=== PATIENT | male | born 1975 | race Caucasian/White ===

== ENCOUNTER 2024-10-01 21:50 | Emergency (ER) | payer OTHER, SELFPAY ==
[2024-10-01 21:51] VITALS: BMI 21.2
[2024-10-01 22:06] VITALS: BP 158/108; PULSE 76; RESP 18; TEMP 36.7; O2SAT 99
--- NOTE | 2024-10-01 22:17 | EDNOTE_ITS ---
ED Animal Bite RME/HPI General Chief Complaint: Animal Bite Stated Complaint: dog bite to L upper lip says it won't stop bleedin Time Seen by Provider: 10/01/24 21:56 Source: patient Arrival date/time: 10/01/24 21:50 49-year-old male presents emergency department complaining of dog bite to left upper lip that occurred today. Patient reports was bit by his own dog which is up-to-date with vaccines. Patient reports last received tetanus 2 years ago. Mode of arrival: ambulatory Limitations: no limitations Related Data Patient tetanus UTD: Yes Previous Rx's ?Medication ?Instructions ?Recorded doxycycline hyclate 100 mg capsule 100 mg PO BID 7 days #14 caps 10/01/24 Allergies Allergy/AdvReac Type Severity Reaction Status Date / Time Penicillins Allergy Intermediate Hives Verified 04/21/23 10:06 Sulfa (Sulfonamide Allergy Intermediate Hives Verified 04/21/23 10:06 Antibiotics) Review of Systems Review of Systems Systems Reviewed: All systems reviewed, normal except as documented Constitutional Constitutional: Reports system reviewed and no additional complaints, except as documented, Denies body ache(s), Denies chills and Denies fever(s) Eyes Eyes: Reports system reviewed and no additional complaints, except as documented and Denies change in vision ENT Ears, Nose, Mouth, and Throat: Reports system reviewed and no additional complaints, except as documented, Denies disequilibrium, Denies dizziness, Denies sore throat and Denies vertigo Cardiovascular Cardiovascular: Reports system reviewed and no additional complaints, except as documented, Denies chest pain and Denies dyspnea Respiratory Respiratory: Reports system reviewed and no additional complaints, except as documented, Denies chest congestion, Denies cough and Denies dyspnea Gastrointestinal Gastrointestinal: Reports system reviewed and no additional complaints, except as documented, Denies abdominal pain, Denies nausea and Denies vomiting Musculoskeletal Musculoskeletal: Reports system reviewed and no additional complaints, except as documented, Denies abnormal gait and Denies arthralgias Integumentary/Breasts Skin/Breast: Reports system reviewed and no additional complaints, except as documented, Denies erythema, Denies rash and Reports wounds Neurologic Neurologic: Reports system reviewed and no additional complaints, except as documented, Denies abnormal gait, Denies disequilibrium, Denies dizziness and Denies vertigo Past Medical History Past Medical History NEUROLOGIC: Negative Neurological Disorders or Seizures CARDIAC: Negative Cardiac Disorders or Congestive Heart Failure RESPIRATORY: Negative Chronic Obstructive Pulmonary Disease (COPD) GASTROINTESTINAL: Negative Gastrointestinal Disorders GENITOURINARY: Negative Genitourinary Disorders or Renal Disease MUSCULOSKELETAL: Positive Musculoskeletal Disorders (PLANTAR FASCIITIS) ENDOCRINE: Negative Endocrine Disorders, Diabetes Mellitus Type 1 or Diabetes Mellitus Type 2 HEMATOLOGIC: Negative Blood Disorders OTHER HISTORY: Positive Chicken Pox; Negative Autoimmune Disease, Blood Transfusions, Blood Transfusion Reaction, Anesthesia Reactions, Measles, Mumps or Cancer Social History SMOKING STATUS: Never smoker ED Exam General Limitations: Present no limitations General appearance: Present alert and in no apparent distress Head Head exam: Present atraumatic Expanded Head Exam Head exam physical: Present laceration Head image: 2 1. Small laceration Eye Eye exam: Present normal appearance, PERRL and EOMI ENT ENT exam: Present normal exam, normal oropharynx and mucous membranes moist Neck Neck exam: Present normal inspection, full ROM and trachea midline Chest Chest inspection: Present normal inspection and symmetric chest wall rise Respiratory Respiratory exam: Present normal lung sounds bilaterally Cardiovascular Cardiovascular exam: Present regular rate, normal rhythm and normal heart sounds Abdominal Exam Abdominal exam: Present soft and normal bowel sounds Extremities Exam Extremities exam: Present normal inspection and full ROM Back Exam Back exam: Present normal inspection and full ROM Neurological Exam Neurological exam: Present alert, oriented X3 and CN II-XII intact Psychiatric Psychiatric exam: Present normal affect and normal mood Skin Skin exam: Present warm, dry, intact and normal color Course Quality Measures none Orders Category Date Time Status Set Up Suture Tray STAT Care 10/01/24 22:16 Completed Wound Care [Wound Care] NOW Care 10/01/24 22:16 Completed Lidocaine 1% 20 ml [Xylocaine 1% 20 ML] Med 10/01/24 22:16 Discontinued 20 ml INFL X1 ONE Vital Signs Vital signs: Vital Signs Temperature 98.0 F 10/01/24 22:06 Pulse Rate 76 10/01/24 22:06 Respiratory Rate 18 10/01/24 22:06 Blood Pressure 158/108 H 10/01/24 22:06 Pulse Oximetry (%) 99 10/01/24 22:06 Oxygen Delivery Method Room Air 10/01/24 22:06 99% room air within normal Procedures -ED Laceration Laceration 1: Site: lip Side (If applicable): left Size (cm): 1 Description: linear Depth: simple, single layer Local Anesthetic: lidocaine 1% Amount of anesthesia used (mL): 0.5 Pre-repair: wound explored Skin layer closed with: other (prolene) Size (cm): 5-0 Number of sutures: 1 Technique: simple, interrupted Animal Bite MDM Narrative MDM Narrative:: 49-year-old male presents emergency department complaining of dog bite to left upper lip that occurred today. Patient reports was bit by his own dog which is up-to-date with vaccines. Patient reports last received tetanus 2 years ago. Laceration to left upper lip cleansed with normal saline and used 0.5 mL of 1% lidocaine local anesthetic and placed 1 simple interrupted suture to approximate wound using 5-0 Prolene. Patient tolerated well. Patient data External records reviewed:: [facility] previous records Clinical information provided by:: patient Social determinants that could affect healthcare access:: none Patient has the following chronic illnesses:: None How is presenting disease/condition affected by chronic disease/condition?: u neffected by Evaluation data The following diagnostics were reviewed and interpreted by me:: other (specify) (n/a) Lab and/or radiology exams considered but not ordered:: n/a Interpretation Summary: n/a Medications / Prescriptions Medications or Prescriptions considered but not ordered:: Ordered Medication administrations:: Medication Administration History Discontinued Medications Lidocaine HCl (Lidocaine Hcl 1% 20 Ml Vial) 20 ml INFL X1 ONE Stop: 10/01/24 22:17 Last Admin: 10/01/24 22:27 Dose: 20 ml Documented By: MELODY Comments: Given to TEDDY Alvarado for administration Given Consultations Consultation(s) initiated? (list below): No Diagnosis Differential diagnosis animal bite: dog bite Most likely diagnosis given after review of the tests above:: Dog bite Laceration of lip Admission Indicated Admission indicated?: not indicated Admission Request Was there a request for admission?: No Disposition Plan Disposition Plan: Discharge Discharge Attestation Discharge Attestation: The patient and all family members were given an opportunity to ask questions and understood the discharge instructions. Discharge instructions specifically effects, indications for sooner follow up or return to the emergency department, and the expected course of current diagnosis. Patient condition: Stable Discharge Plan Plan Patient Disposition: HOME (Self Care) Disposition Comment: Stable Prescriptions/Referrals Prescriptions/Med Rec: New doxycycline hyclate 100 mg capsule 100 mg PO BID 7 Days Qty: 14 0RF Problem List Clinical Impression: Dog bite, Laceration of lip Patient/Caregiver Discharge Instructions Discharge Activity: activity as tolerated Education Materials: ED Dog Bite, ED Laceration: All Closures Additional Instructions: Keep laceration covered for the first 24 hours until he stops bleeding. After 24 hours keep open to air clean and dry. May wash with warm water and soap. Return to emergency department or primary care provider's office in 5 days for suture removal. Return to emergency department for any signs of infection or as needed. Print Language: Eritre[place] Stand Alone Forms: Clarissa Award Info., Patient Portal Info Letter PA/DIRECTOR OF CAREER RESOURCES Supervising Physician PA/TEDDY Supervising Physician: Dr. Burnett
[2024-10-01] MEDS: LIDOCAINE HCL 1% 20 ML VIAL INFL (22:27)
== END 2024-10-01 23:38 | disposition home or self-care (01) ==
LOC: SERX 23:41
PROVIDERS: Emergency Provider Emergency Medicine; PCP Family Medicine
DX: S01.551A Open bite of lip, initial encounter (principal); W54.0XXA Bitten by dog, initial encounter
CPT/HCPCS: 12011; 99283; J3490